=== PATIENT | female | born 1960 | race Caucasian/White ===

== ENCOUNTER 2017-07-26 00:33 | Inpatient (IN) | payer SELFPAY ==
[~2017-07-26] VITALS: Ht 162.6 cm; Wt 51.8 kg
[~2017-07-26 00:33] MED LIST: ALBU25IPRN INH; CLOR1TAB21 PO; DUONI NEB; METH5; OXYC5 PO; RANI150UDC GT; ZOFR4TAB3 SL; [UNRECOGNIZED DRUG - CODE] PO/J-TUBE
[2017-07-26 00:40] VITALS: BP 141/84; PULSE 92; RESP 14; TEMP 98.1; O2SAT 98
[2017-07-26] MEDS ORDERED: METH40TA PO (01:00)
[2017-07-26] MEDS ORDERED: SODIUM CHLOR 0.9% 1000 ML INJ 1,000 ML IV SCH (01:47)
[2017-07-26] MEDS ORDERED: SODIUM CHLORIDE 0.9% FLUSH 10 ML FLUSH IV FLUSH PRN ×2 (02:00→04:45)
[2017-07-26] MEDS ORDERED: ONDANSETRON HCL 4 MG/2 ML VIAL IV PUSH ONE (02:00)
[2017-07-26 02:17] LABS: BASOPHIL # 0.3 TH/MM3 (0-0.2); BASOPHIL % 3.4 % (0.0-2.0); EOSINOPHIL % 0.1 % (0.0-4.0); LYMPH % 6.1 % (9.0-44.0); LYMPHOCYTE # 0.5 TH/MM3 (1.0-4.8); MEAN CELL VOLUME 93.5 FL (80.0-100.0); MEAN CORPUSCULAR HEMOGLOBIN 31.9 PG (27.0-34.0); MEAN CORPUSCULAR HGB CONC 34.1 % (32.0-36.0); MONO % 3.7 % (0.0-8.0); NEUT % 86.7 % (16.0-70.0); PLATELET COUNT 337 TH/MM3 (150-450); RED BLOOD COUNT 3.96 MIL/MM3 (4.00-5.30); WHITE BLOOD COUNT 8.1 TH/MM3 (4.0-11.0)
[2017-07-26 02:22] LABS: HEMO FLAGS DIFF FINAL
[2017-07-26 02:26] LABS: CHLORIDE 89 MEQ/L (98-107); POTASSIUM 3.6 MEQ/L (3.5-5.1); SODIUM (NA) 127 MEQ/L (136-145)
--- NOTE | 2017-07-26 02:28 | RADRPT ---
EXAM DATE/TIME: 07/26/2017 02:03 [facility] COMPARISON: CHEST SINGLE AP, July 18, 2015, 3:56. INDICATIONS : Chest pain. MEDICAL HISTORY : Laryngeal cancer. SURGICAL HISTORY : Port placement. ENCOUNTER: Initial ACUITY: 1 day PAIN SCORE: 4/10 LOCATION: Bilateral chest FINDINGS: A single view of the chest demonstrates the lungs to be symmetrically aerated without evidence of mas s, infiltrate or effusion. Stable right IJ [id number]. The cardiomediastinal contours are unremar kable. Osseous structures are intact. CONCLUSION: 1. No acute cardiopulmonary disease. Arthur Washington MD on July 26, 2017 at 2:26 Board Certified Radiologist. This report was verified electronically.
[2017-07-26 02:29] LABS: ANION GAP 12 MEQ/L (5-15); BICARBONATE 25.6 MEQ/L (21.0-32.0); BLOOD UREA NITROGEN 8 MG/DL (7-18)
[2017-07-26 02:32] LABS: ALT (GPT) 15 U/L (10-53); AST (GOT) 21 U/L (15-37); GLOMERULAR FILTRATION RATE 72 ML/MIN (>89)
[2017-07-26 02:33] LABS: TOTAL BILIRUBIN ADULT 0.5 MG/DL (0.2-1.0)
[2017-07-26 02:34] LABS: ALKALINE PHOSPHATASE 53 U/L (45-117)
[2017-07-26 02:39] LABS: APTT (PATIENT) 25.9 SEC (24.3-30.1); PROTHROMBIN TIME - PATIENT 11.4 SEC (9.8-11.6)
[2017-07-26 02:47] LABS: GLUCOSE,URINE NEG (NEG); KETONE, URINE 80 OR GREATER mg/dL (NEG); NITRITE,URINE NEG (NEG)
--- NOTE | 2017-07-26 02:47 | PD ---
HPI Chief Complaint: GI Complaint Time Seen by Provider: 01:24 Travel History International Travel<30 days: No Contact w/Intl Traveler<30days: No Traveled to known affect area: No History of Present Illness HPI 56-year-old female with history of pharyngeal cancer status post surgical resection and chemotherapy several years ago, here for evaluation of nausea and vomiting, chills, palpitations, and inability to sleep. Symptoms have been going on for the past 3 days. Patient is able to swallow, however she states shortly after she vomits whenever she swallows back up. No chest pain or dyspnea. Mild mid abdominal discomfort. PFSH Past Medical History Arthritis: Yes Autoimmune Disease: No Anxiety: Yes Depression: No Cancer: Yes (LYMPH NODE AND LARYNX) Cardiovascular Problems: No Chemotherapy: Yes Diabetes: No Diminished Hearing: No Endocrine: No Genitourinary: No Headaches: Yes Hepatitis: No Hiatal Hernia: No Immune Disorder: No Implanted Vascular Access Dvce: Yes Musculoskeletal: No Neurologic: No Psychiatric: Yes (ANXIETY) Reproductive: No Respiratory: Yes (TRACHEOSTOMY) Radiation Therapy: Yes Thyroid Disease: Yes (HYPERTHYROIDISM) Tetanus Vaccination: > 5 Years Influenza Vaccination: No ?: Not Menopausal: Yes : 3 Para: 3 Dilation and Curettage (D&C): Yes Tubal Ligation: Yes Past Surgical History Abdominal Surgery: Yes (APPENDECTOMY,2 , D&C) AICD: No Appendectomy: Yes Arteriovenous Shunt: No Cardiac Surgery: No Section: Yes (X2) Ear Surgery: No Endocrine Surgery: No Eye Surgery: No Genitourinary Surgery: No Gynecologic Surgery: No Insulin Pump: No Joint Replacement: No Oral Surgery: Yes ("MY TEETH PULLED") Pacemaker: No Thoracic Surgery: No Other Surgery: Yes (PARTIAL THYROIDECTOMY) Social History Alcohol Use: No Tobacco Use: No (QUIT JANUARY 2015) Substance Use: No Allergies-Medications (Allergen,Severity, Reaction): Coded Allergies: penicillin G (Unverified Allergy, Severe, Hives, 07/26/17) Reported Meds & Prescriptions Reported Meds & Active Scripts Active Reported Methadone (Methadone HCl) 40 Mg Tab 180 Mg PO DAILY Review of Systems Except as stated in HPI: all other systems reviewed are Neg Physical Exam Narrative GENERAL: Well-developed, thin, comfortable, awake, alert, no apparent distress. SKIN: Focused skin assessment warm/dry. HEAD: Atraumatic. Normocephalic. EYES: Pupils equal and round. No scleral icterus. No injection or drainage. ENT: Mucous membranes pink and moist. No drooling or stridor. Tolerating clear liquids. NECK: Trachea midline. No JVD. CARDIOVASCULAR: Regular rate and rhythm. RESPIRATORY: No accessory muscle use. Clear to auscultation. Breath sounds equal bilaterally. GASTROINTESTINAL: Abdomen soft, non-tender, nondistended. Normal bowel sounds. MUSCULOSKELETAL: No obvious deformities. No clubbing. No cyanosis. No edema. NEUROLOGICAL: Awake and alert. No obvious cranial nerve deficits. Motor grossly within normal limits. Normal speech. PSYCHIATRIC: Appropriate mood and affect; insight and judgment normal. Data Data Last Documented VS Vital Signs Date Time Temp Pulse Resp B/P (MAP) Pulse Ox O2 Delivery O2 Flow Rate FiO2 07/26/17 03:45 86 18 119/69 (86) 100 Room Air 07/26/17 00:40 98.1 Orders Orders Complete Blood Count With Diff (07/26/17 01:47) Comprehensive Metabolic Panel (07/26/17 01:47) Lipase (07/26/17 01:47) Prothrombin Time / Inr (Pt) (07/26/17 01:47) Act Partial Throm Time (Ptt) (07/26/17 01:47) Urinalysis - C+S If Indicated (07/26/17 01:47) Iv Access Insert/Monitor (07/26/17 01:47) Ecg Monitoring (07/26/17 01:47) Oximetry (07/26/17 01:47) Sodium Chlor 0.9% 1000 Ml Inj (Ns 1000 M (07/26/17 01:47) Sodium Chloride 0.9% Flush (Ns Flush) (07/26/17 02:00) Electrocardiogram (07/26/17 01:47) Ondansetron Inj (Zofran Inj) (07/26/17 02:00) Chest, Single Ap (07/26/17 ) Ct Abd/Pel W Iv Contrast(Rout) (07/26/17 ) Urine Culture (07/26/17 02:30) Ct Soft Tiss Neck W/O Iv Cont (07/26/17 ) Ceftriaxone Inj (Rocephin Inj) (07/26/17 04:00) Hydroxyzine Pamoate (Vistaril) (07/26/17 04:00) Metronidazole 500 Mg Inj (Flagyl 500 Mg (07/26/17 04:45) Labs Laboratory Tests Test 07/26/17 01:50 07/26/17 02:30 White Blood Count 8.1 TH/MM3 Red Blood Count 3.96 MIL/MM3 Hemoglobin 12.6 GM/DL Hematocrit 37.0 % Mean Corpuscular Volume 93.5 FL Mean Corpuscular Hemoglobin 31.9 PG Mean Corpuscular Hemoglobin Concent 34.1 % Red Cell Distribution Width 13.0 % Platelet Count 337 TH/MM3 Mean Platelet Volume 6.5 FL Neutrophils (%) (Auto) 86.7 % Lymphocytes (%) (Auto) 6.1 % Monocytes (%) (Auto) 3.7 % Eosinophils (%) (Auto) 0.1 % Basophils (%) (Auto) 3.4 % Neutrophils # (Auto) 7.0 TH/MM3 Lymphocytes # (Auto) 0.5 TH/MM3 Monocytes # (Auto) 0.3 TH/MM3 Eosinophils # (Auto) 0.0 TH/MM3 Basophils # (Auto) 0.3 TH/MM3 CBC Comment DIFF FINAL Differential Comment Prothrombin Time 11.4 SEC Prothromb Time International Ratio 1.0 RATIO Activated Partial Thromboplast Time 25.9 SEC Blood Urea Nitrogen 8 MG/DL Creatinine 0.83 MG/DL Random Glucose 121 MG/DL Total Protein 7.7 GM/DL Albumin 3.8 GM/DL Calcium Level 9.5 MG/DL Alkaline Phosphatase 53 U/L Aspartate Amino Transf (AST/SGOT) 21 U/L Alanine Aminotransferase (ALT/SGPT) 15 U/L Total Bilirubin 0.5 MG/DL Sodium Level 127 MEQ/L Potassium Level 3.6 MEQ/L Chloride Level 89 MEQ/L Carbon Dioxide Level 25.6 MEQ/L Anion Gap 12 MEQ/L Estimat Glomerular Filtration Rate 72 ML/MIN Lipase 94 U/L Urine Color YELLOW Urine Turbidity SLIGHT Urine pH 6.0 Urine Specific [place] 1.013 Urine Protein NEG mg/dL Urine Glucose (UA) NEG mg/dL Urine Ketones 80 OR GREATER mg/dL Urine Occult Blood TRACE Urine Nitrite NEG Urine Bilirubin NEG Urine Leukocyte Esterase LARGE Urine RBC 4-9 /hpf Urine WBC 9-14 /hpf Urine Squamous Epithelial Cells 6-8 /hpf Urine Amorphous Sediment SMALL Urine Bacteria FEW /hpf Microscopic Urinalysis Comment CULTURE INDICATED MDM Medical Decision Making Medical Screen Exam Complete: Yes Emergency Medical Condition: Yes Differential Diagnosis Bowel obstruction, viral illness, dehydration, metabolic abnormality Narrative Course Vital signs show heart rate 92, blood pressure 141/84, pulse ox 98% on room air , oral temp of 91.8F. CBC shows WBC 8.1, hemoglobin 12.6, hematocrit 37, platelets 337, neutrophils 86.7%. CMP is remarkable for sodium 127, chloride 89, otherwise unremarkable. Lipase is 94. Use a shows 80 years greater ketones, trace occult blood, large leukocyte esterase, 4-9 RBCs, 9-14 wbc's, 6-8 squamous epithelial cells, few bacteria, culture indicated. Patient appears to be very anxious, particularly about the possibility of having a recurrence of her cancer which she has expressed to both myself and the nurse several times. She has been requesting something to help her sleep. She'll be given a dose of Vistaril. She was given a dose of IV Rocephin for her UTI. Chest x-ray: No acute cardiopulmonary disease. CT abdomen pelvis: CONCLUSION: 1. Mildly dilated loops of proximal jejunum demonstrating mild bowel wall thickening with transition point in the left lower quadrant. More proximally the duodenum and stomach are not significantly dilated. No significant associated inflammatory stranding. No bowel infarction or perforation. Differential considerations include developing partial small bowel obstruction versus enteritis. CT soft tissue neck: CONCLUSION: 1. Stable appearance of post treatment changes in the left neck with continued stable asymmetry at the level of the true vocal cords. Single new 1 cm level IB left-sided lymph node with stable bilateral subcentimeter level II and 3 lymph nodes. 2. Otherwise, no apparent acute abnormality or significant new mass. Patient was made aware of all findings. She does have some abdominal discomfort , however does not wish to have any pain medication. She continues to request something for sleep. Given her frequent episodes of nausea and vomiting with findings suggestive of possibly a partial/developing SBO as well as enteritis and her hyponatremia, the patient will be admitted for overnight observation. She was given a dose of IV Rocephin for her UTI. I will also give her a dose of 500 mg of IV Flagyl for possible enteritis. Case discussed with hospitalist Dr. Ortiz who will admit the patient to her service. Diagnosis Primary Impression: Partial small bowel obstruction Additional Impressions: Nausea and vomiting Qualified Codes: R11.2 - Nausea with vomiting, unspecified UTI (urinary tract infection) Qualified Codes: N39.0 - Urinary tract infection, site not specified; R31.9 - Hematuria, unspecified Hyponatremia Admitting Information Admitting Physician Requests: Wellington Farley MD Jul 26, 2017 02:47
[2017-07-26 02:58] LABS: BLOOD, URINE TRACE (NEG)
[2017-07-26 02:59] LABS: URINE COLOR YELLOW (YELLW/STRAW)
[2017-07-26 03:00] LABS: BACTERIA, URINE FEW /hpf
[2017-07-26 03:01] LABS: COMMENT (UR) CULTURE INDICATED; CULTURE IF INDICATED CULTURE INDICATED
[2017-07-26] MEDS ORDERED: IOHEXOL 350 MG/ML 10 ML VIAL (for RAD DIAG) IVCONTRAST ONE (03:01)
--- NOTE | 2017-07-26 03:44 | RADRPT ---
EXAM DATE/TIME: 07/26/2017 03:01 [facility] COMPARISON: CT THORAX W CONTRAST, January 15, 2016, 13:37. INDICATIONS : Abdominal pain all over for three days. IV CONTRAST: 75 cc Omnipaque 350 (iohexol) IV ORAL CONTRAST: No oral contrast ingested. RADIATION DOSE: 5.85 CTDIvol (mGy) MEDICAL HISTORY : Carcinoma, thyroid. Hypothyroidism. Arthritis. SURGICAL HISTORY : Appendectomy. section.partial thyriodectomy and tracheostomy ENCOUNTER: Initial ACUITY: 3 days PAIN SCALE: 6/10 LOCATION: abdomen TECHNIQUE: Volumetric scanning of the abdomen and pelvis was performed. Using automated exposure control and ad justment of the mA and/or kV according to patient size, radiation dose was kept as low as reasonably achievable to obtain optimal diagnostic quality images. DICOM format image data is available electro nically for review and comparison. FINDINGS: LOWER LUNGS: The visualized lower lungs are clear. LIVER: Homogeneous density without lesion. There is no dilation of the biliary tree. No calcified gallston es. SPLEEN: Normal size without lesion. PANCREAS: Within normal limits. KIDNEYS: Normal in size and shape. There is no mass, stone or hydronephrosis. ADRENAL GLANDS: Within normal limits. VASCULAR: There is no aortic aneurysm. SMA and SMV are patent. Portal vein is patent without evidence for alva l venous gas. BOWEL/MESENTERY: Several loops of proximal jejunum are dilated and demonstrate bowel wall thickening with transition p oint in the left abdomen. More proximally, the duodenum and stomach are not distended. More distally, ileal loops are decompressed and grossly unremarkable. Colon appears decompressed and is unremarkabl e. There is no significant free fluid or drainable fluid collection. No definitive pneumatosis. No fr ee air. ABDOMINAL WALL: Within normal limits. RETROPERITONEUM: There is no lymphadenopathy. BLADDER: No wall thickening or mass. REPRODUCTIVE: Within normal limits. INGUINAL: There is no lymphadenopathy or hernia. MUSCULOSKELETAL: Within normal limits for patient age. CONCLUSION: 1. Mildly dilated loops of proximal jejunum demonstrating mild bowel wall thickening with transition point in the left lower quadrant. More proximally the duodenum and stomach are not significantly dila angelica. No significant associated inflammatory stranding. No bowel infarction or perforation. Differenti al considerations include developing partial small bowel obstruction versus enteritis. Arthur Washington MD on July 26, 2017 at 3:27 Board Certified Radiologist. This report was verified electronically.
[2017-07-26 03:45] VITALS: BP 119/69; PULSE 86; RESP 18; O2SAT 100
[2017-07-26] MEDS ORDERED: cefTRIAXone INJ 1,000 MG in SODIUM CHLORIDE 0.9% INJ 100 ML IV ONE (04:00)
[2017-07-26] MEDS ORDERED: hydrOXYzine PAMOATE 25 MG CAP PO ONE (04:00)
--- NOTE | 2017-07-26 04:01 | RADRPT ---
EXAM DATE/TIME: 07/26/2017 03:01 [facility] COMPARISON: CT SOFT TISSUE NECK W CONTRAST, June 25, 2015, 11:21. CT SOFT TISSUE NECK W CONTRAST, January 15, 2016, 13:37. INDICATIONS : Right mandibular swelling and difficulty keeping liquids down. RADIATION DOSE: 8.16 CTDIvol (mGy) MEDICAL HISTORY : Carcinoma, thyroid. Hypothyroidism. Arthritis. SURGICAL HISTORY : Appendectomy. section.Partial thyroidectomy ENCOUNTER: Initial ACUITY: 3 days PAIN SCORE: 3/10 LOCATION: Right neck TECHNIQUE: Volumetric scanning of the neck was performed. Using automated exposure control and adjustment of th e mA and/or kV according to patient size, radiation dose was kept as low as reasonably achievable to obtain optimal diagnostic quality images. DICOM format image data is available electronically for re view and comparison. 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 Today 's examination demonstrates subcentimeter bilateral level II and III lymph nodes. A single new 1 cm l evel IB left-sided lymph node. There is redemonstration post treatment changes with continued mild as ymmetry at the level of the true vocal cords significantly improved from mass noted on CT examination of 06/25/2015 and not significantly changed from 01/15/2016. Submandibular and parotid glands are unrem arkable. Nasopharynx is unremarkable. Redemonstration of bilateral calcified low density thyroid mass es. Visualized portions of the lung apices are clear. No focal lytic or blastic bony lesions. CONCLUSION: 1. Stable appearance of post treatment changes in the left neck with continued stable asymmetry at th e level of the true vocal cords. Single new 1 cm level IB left-sided lymph node with stable bilateral subcentimeter level II and 3 lymph nodes. 2. Otherwise, no apparent acute abnormality or significant new mass. Arthur Washington MD on July 26, 2017 at 3:42 Board Certified Radiologist. This report was verified electronically.
[2017-07-26] MEDS ORDERED: NALOXONE HCL 0.4 MG/ML AMP IV PRN (04:45)
[2017-07-26] MEDS ORDERED: metroNIDAZOLE 500 MG INJ 100 ML IV ONE (04:45)
[2017-07-26] MEDS: SODIUM CHLOR 0.9% 1000 ML INJ 1,000 ML IV SCH ×2 (04:47→14:35)
[2017-07-26 06:32] VITALS: BP 117/77; PULSE 88; RESP 18; TEMP 99.7; O2SAT 98
[2017-07-26 08:00] VITALS: BP 120/75; PULSE 88; RESP 16; TEMP 99.7; O2SAT 97
[2017-07-26] MEDS ORDERED: LORazepam 1 MG TAB PO ONE (08:45)
[2017-07-26] MEDS ORDERED: METHADONE HCL 10 MG TAB PO SCH (09:00)
[2017-07-26] MEDS ORDERED: SODIUM CHLORIDE 0.9% FLUSH 10 ML FLUSH IV FLUSH SCH (09:00)
--- NOTE | 2017-07-26 09:28 | RADRPT ---
EXAM DATE/TIME: 07/26/2017 08:56 [facility] COMPARISON: CT ABDOMEN & PELVIS W CONTRAST, July 26, 2017, 3:01. INDICATIONS : Abdomen pain, nausea. MEDICAL HISTORY : Carcinoma, thyroid. Hypothyroidism. SURGICAL HISTORY : Appendectomy. section. partial thyroidectomy ENCOUNTER: Subsequent ACUITY: 3 days PAIN SCORE: 9/10 LOCATION: Bilateral abdomen FINDINGS: A single frontal view of the abdomen centered to the right of midline does not include the left later al abdomen or left lateral pelvis. The visualized bowel structures are normal in diameter. Contrast in the urinary bladder and renal collecting system from prior CT. Visualized lower lungs are clear. Mild curvature of the upper lumbar spine convex towards the right. CONCLUSION: No dilated loops of bowel seen. However, please note that the left lateral abdomen is not included i n the [id number] of this single image; the dilated loop of small bowel seen on CT was located left lateral and may not be included in the [id number] of this exam. Abimael Miranda MD on July 26, 2017 at 9:24 Board Certified Radiologist. This report was verified electronically.
[2017-07-26] MEDS ORDERED: CIPROFLOXACIN 200 MG PREMIX 100 ML IV SCH (10:00)
--- NOTE | 2017-07-26 11:14 | HHI.HP ---
[facility]PI [facility] Primary Care Physician No Primary Care Physician Admission Diagnosis partial SBO, nausea and vomiting, hyponatremia, UTI Diagnoses: Travel History International Travel<30 Days: No Contact w/Intl Traveler <30 Da: No Traveled to Known Affected Are: No History of Present Illness This is a 56-year-old female patient with past medical history of previous supraglottic laryngeal cancer in remission since 2014, chronic opioid dependence, anxiety who presented to the ER last night complaining of insomnia and nausea and vomiting. Of note the patient is a somewhat poor historian. Per her nurse Rosie, the patient had initially stated that she had run out of methadone at home, we called the methadone clinic this morning who stated that the patient had last received 6 doses of methadone on the and had missed her appointment on the and thus the patient would've been out of methadone for 3 days. The patient takes 180 mg of methadone daily. The patient initially told the nurse Rosie that she was out of methadone, however after receiving 40 mg of methadone this morning, the patient is now telling me that she has not run out of methadone at home. The patient is also requesting tranxene for her nerves which she states that she was receiving up until a few months ago from her primary care physician. The patient states that she came to the hospital because she could not sleep for the past 3 nights. Upon multiple prompts she does endorse that she started to have some vomiting about 4 days ago and vomited last night. She denies any abdominal pain. The patient states that she has daily bowel movements including yesterday. Today she is feeling much better and would like to go home. While in the emergency department the abdominal CT scan with IV contrast but no oral contrast showed a possible partial small bowel obstruction versus enteritis. The patient has never had issues with small bowel obstructions before. She does have a history of 2 sections, a remote appendectomy in the 1970s as well as a previous PEG tube. She states she normally eats a soft mechanical diet and drinks ensure. The patient is quite anxious and has been up to the nursing station several times asking to be discharged home. Abdominal x-ray ordered and reviewed by myself this morning shows no dilated loops of bowel however the very left lateral abdomen was not visualized on the x-ray and this is where the previous dilated loop of small bowel had been seen on the CT scan. The patient does not currently see a primary care physician and states that she just got back on Medicaid several days ago. Review of Systems Constitutional: DENIES: Fever, Chills Eyes: COMPLAINS OF: Eye inflammation (she felt her eyes were burning several days ago) Ears, nose, mouth, throat: COMPLAINS OF: Hoarseness (the patient states that she does get hoarseness and dry mouth), Running Nose (the patient states that she was having a runny nose several days ago), DENIES: Odynophagia Respiratory: DENIES: Cough, Shortness of breath Cardiovascular: COMPLAINS OF: Palpitations (she felt her heart was racing), DENIES: Chest pain, Lower Extremity Edema Gastrointestinal: COMPLAINS OF: Nausea, Vomiting, DENIES: Abdominal pain, Difficulty Swallowing Genitourinary: DENIES: Urinary incontinence, Hematuria, Dysuria Musculoskeletal: DENIES: Muscle aches Neurologic: DENIES: Headache, Localized weakness Psychiatric: COMPLAINS OF: Anxiety, DENIES: Confusion Past Family Social History Past Medical History As per history of present illness Past Surgical History As per history of present illness Reported Medications Allergies Coded Allergies Type Severity Reaction Last Updated Verified penicillin G Allergy Severe Hives 07/26/17 No Active Scripts Medications Dose Route/Sig Max Daily Dose Days Date Category Methadone (Methadone HCl) 40 Mg Tab 180 Mg PO DAILY 07/26/17 Reported Allergies: Coded Allergies: penicillin G (Unverified Allergy, Severe, Hives, 07/26/17) Family History Reviewed and noncontributory Social History She is and has adopted her 3 grandchildren. 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 Denies illicit or alcohol use. Physical Exam Vital Signs Vital Signs Date Time Temp Pulse Resp B/P (MAP) Pulse Ox O2 Delivery O2 Flow Rate FiO2 07/26/17 08:00 99.7 88 16 120/75 (90) 97 07/26/17 06:32 99.7 88 18 117/77 (90) 98 07/26/17 06:06 07/26/17 03:45 86 18 119/69 (86) 100 Room Air 07/26/17 00:40 98.1 92 14 141/84 (859) 98 Physical Exam GENERAL: Well-nourished, well-developed quite lean female patient. SKIN: Warm and dry. HEAD: Normocephalic. EYES: No scleral icterus. No injection or drainage. NECK: Supple, trachea midline. No JVD or lymphadenopathy. CARDIOVASCULAR: Regular rate and rhythm without murmurs, gallops, or rubs. RESPIRATORY: Breath sounds equal bilaterally. No accessory muscle use. GASTROINTESTINAL: Bowel sounds hyperactive. Right lower quadrant appendectomy scar, midline suprapubic vertical scar. Abdomen soft, non-tender, nondistended. EXTREMITIES: No cyanosis, or edema. NEUROLOGICAL: Awake, alert, and oriented x 3. Non-focal. Laboratory Laboratory Tests Test 07/26/17 01:50 07/26/17 02:30 White Blood Count 8.1 Red Blood Count 3.96 Hemoglobin 12.6 Hematocrit 37.0 Mean Corpuscular Volume 93.5 Mean Corpuscular Hemoglobin 31.9 Mean Corpuscular Hemoglobin Concent 34.1 Red Cell Distribution Width 13.0 Platelet Count 337 Mean Platelet Volume 6.5 Neutrophils (%) (Auto) 86.7 Lymphocytes (%) (Auto) 6.1 Monocytes (%) (Auto) 3.7 Eosinophils (%) (Auto) 0.1 Basophils (%) (Auto) 3.4 Neutrophils # (Auto) 7.0 Lymphocytes # (Auto) 0.5 Monocytes # (Auto) 0.3 Eosinophils # (Auto) 0.0 Basophils # (Auto) 0.3 CBC Comment DIFF FINAL Differential Comment Prothrombin Time 11.4 Prothromb Time International Ratio 1.0 Activated Partial Thromboplast Time 25.9 Blood Urea Nitrogen 8 Creatinine 0.83 Random Glucose 121 Total Protein 7.7 Albumin 3.8 Calcium Level 9.5 Alkaline Phosphatase 53 Aspartate Amino Transf (AST/SGOT) 21 Alanine Aminotransferase (ALT/SGPT) 15 Total Bilirubin 0.5 Sodium Level 127 Potassium Level 3.6 Chloride Level 89 Carbon Dioxide Level 25.6 Anion Gap 12 Estimat Glomerular Filtration Rate 72 Lipase 94 Urine Color YELLOW Urine Turbidity SLIGHT Urine pH 6.0 Urine Specific [place] 1.013 Urine Protein NEG Urine Glucose (UA) NEG Urine Ketones 80 OR GREATER Urine Occult Blood TRACE Urine Nitrite NEG Urine Bilirubin NEG Urine Leukocyte Esterase LARGE Urine RBC 4-9 Urine WBC 9-14 Urine Squamous Epithelial Cells 6-8 Urine Amorphous Sediment SMALL Urine Bacteria FEW Microscopic Urinalysis Comment CULTURE INDICATED Date/Time Source Procedure Growth Status 07/26/17 02:30 Urine Clean Catch Urine Culture Pending Received Result Diagram: 07/26/17 0150 07/26/17 0150 Imaging Last Impressions Neck CT 07/26/17 0000 Signed Impressions: Service Date/Time: Wednesday, July 26, 2017 03:01 - CONCLUSION: 1. Stable appearance of post treatment changes in the left neck with continued stable asymmetry at the level of the true vocal cords. Single new 1 cm level IB left-sided lymph node with stable bilateral subcentimeter level II and 3 lymph nodes. 2. Otherwise, no apparent acute abnormality or significant new mass. Arthur Washington MD Chest X-Ray 07/26/17 0000 Signed Impressions: Service Date/Time: Wednesday, July 26, 2017 02:03 - CONCLUSION: 1. No acute cardiopulmonary disease. Arthur Washington MD Abdomen/Pelvis CT 07/26/17 0000 Signed Impressions: Service Date/Time: Wednesday, July 26, 2017 03:01 - CONCLUSION: 1. Mildly dilated loops of proximal jejunum demonstrating mild bowel wall thickening with transition point in the left lower quadrant. More proximally the duodenum and stomach are not significantly dilated. No significant associated inflammatory stranding. No bowel infarction or perforation. Differential considerations include developing partial small bowel obstruction versus enteritis. Arthur Washington MD Abdomen X-Ray 07/26/17 0000 Signed Impressions: Service Date/Time: Wednesday, July 26, 2017 08:56 - CONCLUSION: No dilated loops of bowel seen. However, please note that the left lateral abdomen is not included in the [id number] of this single image; the dilated loop of small bowel seen on CT was located left lateral and may not be included in the [id number] of this exam. Abimael Miranda MD Caprini VTE Risk Assessment Caprini VTE Risk Assessment: No/Low Risk (score <= 1) Caprini Risk Assessment Model Point Value = 1 Point Value = 2 Point Value = 3 Point Value = 5 Age 41-60 Minor surgery BMI > 25 kg/m2 Swollen legs Varicose veins or History of unexplained or recurrent spontaneous Oral contraceptives or hormone replacement Sepsis (< 1 month) Serious lung disease, including pneumonia (< 1 month) Abnormal pulmonary function Acute myocardial infarction Congestive heart failure (< 1 month) History of inflammatory bowel disease Medical patient at bed rest Age 61-74 Arthroscopic surgery Major open surgery (> 45 min) Laparoscopic surgery (> 45 min) Malignancy Confined to bed (> 72 hours) Immobilizing plaster cast Central venous access Age >= 75 History of VTE Family history of VTE Factor V Leiden Prothrombin [id number] Lupus anticoagulant Anticardiolipin antibodies Elevated serum homocysteine Heparin-induced thrombocytopenia Other congenital or acquired thrombophilia Stroke (< 1 month) Elective arthroplasty Hip, pelvis, or leg fracture Acute spinal cord injury (< 1 month) Prophylaxis Regimen Total Risk Factor Score Risk Level Prophylaxis Regimen 0-1 Low Early ambulation 2 Moderate Order ONE of the following: *Sequential Compression Device (SCD) *Heparin 5000 units SQ BID 3-4 Higher Order ONE of the following medications: *Heparin 5000 units SQ TID *Enoxaparin/Lovenox 40 mg SQ daily (WT < 150 kg, CrCl > 30 mL/min) *Enoxaparin/Lovenox 30 mg SQ daily (WT < 150 kg, CrCl > 10-29 mL/min) *Enoxaparin/Lovenox 30 mg SQ BID (WT < 150 kg, CrCl > 30 mL/min) AND/OR *Sequential Compression Device (SCD) 5 or more Highest Order ONE of the following medications: *Heparin 5000 units SQ TID (Preferred with Epidurals) *Enoxaparin/Lovenox 40 mg SQ daily (WT < 150 kg, CrCl > 30 mL/min) *Enoxaparin/Lovenox 30 mg SQ daily (WT < 150 kg, CrCl > 10-29 mL/min) *Enoxaparin/Lovenox 30 mg SQ BID (WT < 150 kg, CrCl > 30 mL/min) AND *Sequential Compression Device (SCD) Assessment and Plan Problem List: (1) UTI (urinary tract infection) ICD Code: N39.0 - Urinary tract infection, site not specified Status: Acute (2) Nausea and vomiting ICD Code: R11.2 - Nausea with vomiting, unspecified Status: Acute (3) Hyponatremia ICD Code: E87.1 - Hypo-osmolality and hyponatremia Status: Acute (4) Partial small bowel obstruction ICD Code: K56.69 - Other intestinal obstruction Status: Acute Assessment and Plan -Nausea and vomiting, which appears resolved. The patient had evidence of a possible partial small bowel obstruction versus enteritis on the abdominal CT scan without oral contrast. The patient has not had any further vomiting since being in the hospital. She has no previous history of intestinal obstructions, has history of remote appendectomy in the 1970s as well as 2 C-sections. Last bowel movement was yesterday. Abdominal x-ray this morning showing no dilated loops of bowel however the left lateral abdomen was not visualized. We'll start the patient on liquid diet and see how she does. -Hyponatremia unclear. Acute or chronic. Will repeat BMP. Continue normal saline IV fluids. -Chronic methadone dependence. The patient has given contradicting stories at first telling the nurse Rosie that she had run out of her methadone at home. This is consistent with what the methadone clinic told us as well. The patient is on a high-dose 180 mg daily. The patient received 40 mg this morning, I did decrease her dose to 40 mg twice a day as the likely scenario is that she has been out of her methadone for 3 days. The patient is now telling me that she actually has not run out of methadone and is quite anxious to leave the hospital. I feel the safest thing to do is to decrease her dose given that she likely has been out of the methadone for 3 days. The patient is likely now quite anxious to leave the hospital because of the decreased dose of methadone. She was given Ativan 1 mg this morning for anxiety. She is requesting I prescribed her Tranxene. -Anxiety. Will treat with Xanax 0.5 mg every 4 hours as needed. -History of supraglottic pharyngeal cancer. The patient states that she sees Dr. Hawthorne regularly and has not had any recurrence. Neck CT in the emergency department shows stable appearance of posttreatment changes in the left neck with continued stable asymmetries level of the true vocal cords, a single new 1 cm left-sided level IB lymph node with stable bilateral sub-centimeter level II and 3 lymph nodes. -Possible urinary tract infection. Will treat with Cipro. Urine culture is pending. -DVT prophylaxis with SCDs. - Problem Qualifiers (1) UTI (urinary tract infection): Qualified Codes: N39.0 - Urinary tract infection, site not specified; R31.9 - Hematuria, unspecified (2) Nausea and vomiting: Qualified Codes: R11.2 - Nausea with vomiting, unspecified Tamara Corbin MD Jul 26, 2017 11:13
[2017-07-26 12:00] VITALS: BP 120/72; PULSE 85; RESP 19; TEMP 98.6; O2SAT 97
[2017-07-26] MEDS ORDERED: ALPRAZolam 0.5 MG TAB PO PRN (12:30)
[2017-07-26 12:58] LABS: POTASSIUM 3.5 MEQ/L (3.5-5.1)
[2017-07-26 13:01] LABS: BICARBONATE 28.8 MEQ/L (21.0-32.0)
--- NOTE | 2017-07-26 14:55 | EKG ---
Date Performed: 07/26/2017 Time Performed: 02:00:50 PTAGE: 56 years EKG: Sinus rhythm POSSIBLE LEFT ATRIAL ENLARGEMENT NONSPECIFIC T-WAVE ABNORMALITY BORDERLINE ECG PREVIOUS TRACING : 07/16/2015 18.13 Patient is no longer in supraventricular tachycardia. ST de pressions are improved since the old tracing. DOCTOR: Handy Coulter Interpretating Date/Time 07/26/2017 14:53:54
[2017-07-26] MEDS ORDERED: METH10TA PO (15:04)
[2017-07-26] MEDS ORDERED: CIPR250T52 PO (15:04)
[2017-07-26] MEDS ORDERED: ALPR.5 PO (15:04)
== END 2017-07-26 17:05 | disposition home or self-care (01) | DRG 389 ==
LOC: PHED 00:33 → OBSVTOIN 04:39 → PHEDA 04:39 → PH3A 06:09
PROVIDERS: ADMIT Family Medicine; ATTEND Family Medicine
DX: K56.60 Unspecified intestinal obstruction (principal); N39.0 Urinary tract infection, site not specified; E87.1 Hypo-osmolality and hyponatremia; F11.20 Opioid dependence, uncomplicated; G47.00 Insomnia, unspecified; F41.9 Anxiety disorder, unspecified; M19.90 Unspecified osteoarthritis, unspecified site; Z85.21 Personal history of malignant neoplasm of larynx; Z87.891 Personal history of nicotine dependence; Z88.0 Allergy status to penicillin; Z92.3 Personal history of irradiation; Z92.21 Personal history of antineoplastic chemotherapy
CPT/HCPCS: 70490; 71010; 74000; 74177; 80048; 80053; 81001; 83690; 85025; 85610; 85730; 87086; 93005; 96361; 96365; 96375; J0696; J0744; J2405; J7030; Q0177; Q9967